=== PATIENT | male | born 1990 | race Caucasian/White ===

== ENCOUNTER 2017-05-31 21:05 | Emergency (ER) | payer SELFPAY | END 2017-05-31 23:24 | disposition home or self-care (01) | LOC: D.ER 21:05 | DX: L02.211 Cutaneous abscess of abdominal wall (principal) ==

== ENCOUNTER 2018-07-13 12:38 | Emergency (ER) | payer SELFPAY ==
[~2018-07-13] VITALS: Ht 172.7 cm; Wt 54.5 kg
[2018-07-13 13:25] VITALS: Ht 172.7 cm; Wt 54.5 kg
[2018-07-13 14:35] LABS: APPEARANCE HAZY (CLEAR); BILIRUBIN NEGATIVE (NEGATIVE); COLOR YELLOW (YELLOW); GLUCOSE NEGATIVE (NEGATIVE); KETONE NEGATIVE (NEGATIVE); NITRITE NEGATIVE (NEGATIVE); PROTEIN NEGATIVE (NEGATIVE); UROBILINOGEN NORMAL (NORMAL)
[2018-07-13 14:36] LABS: BACTERIA FEW /hpf (NONE SEEN); EPITHELIAL CELLS OCC /hpf (0-5)
[2018-07-13 14:43] LABS: ALBUMIN 3.8 g/dL (3.4-5.0); ALKALINE PHOSPHATASE 70 U/L (46-116); ALT (SGPT) 26 U/L (10-68); BILIRUBIN - TOTAL 0.36 mg/dL (0.2-1.3); CALC OSMOLALITY 280 mosm/kg (275-300); CALCIUM 9.1 mg/dL (8.5-10.1); CARBON DIOXIDE 30.3 mmol/L (21.0-32.0); CHLORIDE - SERUM 103 mmol/L (98-107); CREATININE - SERUM 0.9 mg/dL (0.6-1.3); GLUCOSE 98 mg/dL (74-106); POTASSIUM - SERUM 3.9 mmol/L (3.5-5.1); PROTEIN - SERUM 6.7 g/dL (6.4-8.2); SODIUM 141 mmol/L (136-145); UREA NITROGEN 12 mg/dL (7-18); eGFR NON AFRICAN AMERICAN > 90 mL/min (90-120)
[2018-07-13 14:44] LABS: BASOPHILS 0.7 % (0-2); EOSINOPHILS 1.8 % (0-7); HEMATOCRIT 41.9 % (42.0-54.0); HEMOGLOBIN 14.3 g/dL (13.5-17.5); IMMATURE GRANULOCYTES 0.1 % (0-5); MCH 31.1 pg (26.0-34.0); MCHC 34.1 g/dL (31.0-37.0); MCV 91.1 fL (80.0-100.0); MEAN PLATELET VOLUME 9.7 fL (7.4-10.4); MONOCYTES 8.2 % (2-11); NEUTROPHILS 67.2 % (40-80); PLATELET COUNT 204 10x3/uL (130-400); RDW 12.9 % (11.5-14.5); WBC 7.2 10x3/uL (4.8-10.8)
[2018-07-13] MEDS ORDERED: TORADOL10 MG PO (16:26)
[2018-07-13 16:47] VITALS: BP 134/71
== END 2018-07-13 16:48 | disposition home or self-care (01) ==
LOC: D.ER 12:38
PROVIDERS: Family Medicine
DX: R31.29 Other microscopic hematuria (principal); R10.9 Unspecified abdominal pain; F17.210 Nicotine dependence, cigarettes, uncomplicated; N50.811 Right testicular pain

== ENCOUNTER 2018-07-16 00:59 | Emergency (ER) | payer SELFPAY ==
[~2018-07-16] VITALS: Ht 172.7 cm; Wt 56.7 kg
[~2018-07-16 00:59] MED LIST: TORADOL10 MG PO
[2018-07-16 01:03] VITALS: Ht 172.7 cm; Wt 56.7 kg
[2018-07-16 01:29] LABS: APPEARANCE CLEAR (CLEAR); BILIRUBIN NEGATIVE (NEGATIVE); COLOR YELLOW (YELLOW); GLUCOSE NEGATIVE (NEGATIVE); KETONE NEGATIVE (NEGATIVE); NITRITE NEGATIVE (NEGATIVE); PROTEIN NEGATIVE (NEGATIVE); SPECIFIC GRAVITY 1.015 (1.005-1.020); UROBILINOGEN NORMAL (NORMAL)
[2018-07-16 01:30] LABS: AMORPHOUS SEDIMENT <1+ /lpf (NONE SEEN); BACTERIA FEW /hpf (NONE SEEN)
[2018-07-16] MEDS ORDERED: PHENAZOPYRIDIN200 MG PO (01:41)
[2018-07-16] MEDS ORDERED: MACROBID100 MG PO (01:41)
[2018-07-16] MEDS ORDERED: KEFLEX500 MG PO (01:41)
[2018-07-16 01:47] VITALS: BP 122/79
== END 2018-07-16 01:47 | disposition home or self-care (01) ==
LOC: D.ER 00:59
PROVIDERS: Family Medicine
DX: N39.0 Urinary tract infection, site not specified (principal); R30.0 Dysuria; R31.9 Hematuria, unspecified

== ENCOUNTER 2018-08-03 05:32 | Emergency (ER) | payer SELFPAY ==
[~2018-08-03] VITALS: Ht 172.7 cm; Wt 56.8 kg
[~2018-08-03 05:32] MED LIST changes: +KEFLEX500 MG PO; +MACROBID100 MG PO; +PHENAZOPYRIDIN200 MG PO
[2018-08-03 05:37] VITALS: Ht 172.7 cm; Wt 56.8 kg
[2018-08-03 06:18] LABS: APPEARANCE CLEAR (CLEAR); COLOR YELLOW (YELLOW)
[2018-08-03 06:19] LABS: BILIRUBIN NEGATIVE (NEGATIVE); GLUCOSE NEGATIVE (NEGATIVE); KETONE NEGATIVE (NEGATIVE); NITRITE NEGATIVE (NEGATIVE); PROTEIN 1+ mg/dL (NEGATIVE); UROBILINOGEN NORMAL (NORMAL)
[2018-08-03 06:20] LABS: EPITHELIAL CELLS 0-5 /hpf (0-5); RED CELLS - URINE >50 /hpf (0-5); WHITE CELLS - URINE 0-5 /hpf (0-5)
[2018-08-03 06:21] LABS: BACTERIA FEW /hpf (NONE SEEN); MUCUS <1+ /lpf (NONE SEEN)
[2018-08-03] MEDS ORDERED: DILAUDID4 MG PO (06:51)
[2018-08-03 07:14] VITALS: BP 114/57
== END 2018-08-03 07:16 | disposition home or self-care (01) ==
LOC: D.ER 05:32
PROVIDERS: Emergency Medicine
DX: R10.9 Unspecified abdominal pain (principal); R31.9 Hematuria, unspecified

== ENCOUNTER 2018-12-28 07:41 | Emergency (ER) | payer SELFPAY ==
[~2018-12-28] VITALS: Ht 172.7 cm; Wt 57.4 kg
[~2018-12-28 07:41] MED LIST changes: +DILAUDID4 MG PO
[2018-12-28 07:43] VITALS: Ht 172.7 cm; Wt 57.4 kg
[2018-12-28 08:07] LABS: BASOPHILS 0.6 % (0-2); EOSINOPHILS 2.8 % (0-7); HEMATOCRIT 46.5 % (42.0-54.0); HEMOGLOBIN 16.8 g/dL (13.5-17.5); IMMATURE GRANULOCYTES 0.1 % (0-5); MCH 31.6 pg (26.0-34.0); MCHC 36.1 g/dL (31.0-37.0); MCV 87.6 fL (80.0-100.0); MEAN PLATELET VOLUME 9.6 fL (7.4-10.4); MONOCYTES 10.3 % (2-11); NEUTROPHILS 58.2 % (40-80); PLATELET COUNT 193 10x3/uL (130-400); RBC 5.31 10x6/uL (4.20-6.10); WBC 7.9 10x3/uL (4.8-10.8)
[2018-12-28 08:20] LABS: ALBUMIN 4.2 g/dL (3.4-5.0); ALKALINE PHOSPHATASE 82 U/L (46-116); ALT (SGPT) 32 U/L (10-68); BILIRUBIN - TOTAL 0.77 mg/dL (0.2-1.3); CALC OSMOLALITY 280 mosm/kg (275-300); CALCIUM 9.2 mg/dL (8.5-10.1); CARBON DIOXIDE 29.9 mmol/L (21.0-32.0); CHLORIDE - SERUM 105 mmol/L (98-107); GLUCOSE 99 mg/dL (74-106); PROTEIN - SERUM 7.8 g/dL (6.4-8.2); SODIUM 141 mmol/L (136-145); UREA NITROGEN 13 mg/dL (7-18); eGFR NON AFRICAN AMERICAN > 90 mL/min (90-120)
[2018-12-28 08:21] LABS: APPEARANCE HAZY (CLEAR); COLOR YELLOW (YELLOW); POTASSIUM - SERUM 4.3 mmol/L (3.5-5.1)
[2018-12-28 08:22] LABS: BILIRUBIN NEGATIVE (NEGATIVE); GLUCOSE NEGATIVE (NEGATIVE); KETONE NEGATIVE (NEGATIVE); NITRITE NEGATIVE (NEGATIVE); PROTEIN TRACE mg/dL (NEGATIVE); UROBILINOGEN NORMAL (NORMAL)
[2018-12-28 08:23] LABS: EPITHELIAL CELLS OCC /hpf (0-5); RED CELLS - URINE >50 /hpf (0-5); WHITE CELLS - URINE 0-5 /hpf (0-5)
[2018-12-28] MEDS ORDERED: ZOFRAN ODT4 MG/UDTAB PO (11:27)
[2018-12-28] MEDS ORDERED: HYDROCODON-ACE1 EA10 PO (11:27)
[2018-12-28] MEDS ORDERED: FLOMAX0.4 MG PO (11:27)
[2018-12-28 11:42] VITALS: BP 115/80
== END 2018-12-28 11:43 | disposition home or self-care (01) ==
LOC: D.ER 07:41
PROVIDERS: Family Medicine
DX: N20.0 Calculus of kidney (principal)

== ENCOUNTER 2019-02-07 20:20 | Emergency (ER) | payer SELFPAY ==
[~2019-02-07] VITALS: Ht 172.7 cm; Wt 56.7 kg
[~2019-02-07 20:20] MED LIST changes: +FLOMAX0.4 MG PO; +HYDROCODON-ACE1 EA10 PO; +ZOFRAN ODT4 MG/UDTAB PO
[2019-02-07 20:32] VITALS: BP 127/73; Ht 172.7 cm; Wt 56.7 kg
[2019-02-07] MEDS ORDERED: ACETAMINOPHEN500 M1 PO (21:57)
[2019-02-07] MEDS ORDERED: IBUPROFEN800 MG PO (21:57)
[2019-02-07] MEDS ORDERED: CYCLOBENZAPRINE10 MG PO (21:57)
== END 2019-02-07 22:22 | disposition home or self-care (01) ==
LOC: D.ER 20:20
DX: S50.11XA Contusion of right forearm, initial encounter (principal); W22.8XXA Striking against or struck by other objects, initial encounter